=== PATIENT | male | born 1950 | race Caucasian/White ===

== ENCOUNTER 2020-06-20 18:08 | Inpatient (IN) ==
[2020-06-20] MEDS ORDERED: methylPREDNISolone SOD SUC 125 MG/2 ML VIAL IV STA (19:04)
[2020-06-20] MEDS ORDERED: ONDANSETRON 4 MG/2 ML VIAL IV STA (19:04)
[2020-06-20] MEDS ORDERED: SODIUM CHLORIDE 0.9% 500 ML IV STA (19:04)
[2020-06-20] MEDS ORDERED: AZITHROMYCIN INJ 500 MG in SODIUM CHLORIDE 0.9% 250 ML IV STA (19:04)
[2020-06-20 19:53] LABS: Basophils % 0.1 % (0.0-0.8); Hematocrit 41.1 VOL% (42.0-52.0); Hemoglobin 13.3 GM/DL (14.0-18.0); Immature Granulocytes % 1.3 %; Immature Granulocytes Absolute 0.13 #; Lymphocytes # 0.5 10*3/uL (1.4-4.0); Lymphocytes % 5.2 % (21.2-54.2); Mean Corpuscular HGB Conc 32.4 GM/DL (32-36); Mean Corpuscular Volume 90.5 FL (87-102); Mean Platelet Volume 12.2 FL (9.6-12.0); Monocytes % 3.6 % (1.7-12.7); Neutrophils % 89.8 % (38.7-73.9); Platelet Count 121 T/CUMM (130-400); Red Blood Count 4.54 MC/CUMM (3.8-5.5); Red Cell Distribution Width 14.8 % (9.3-17.3); White Blood Count 9.7 T/CUMM (4-12)
[2020-06-20 20:00] LABS: Albumin 2.7 G/DL (3.4-5.0); Bilirubin,Total 0.8 MG/DL (0.2-1.0); Calcium 6.7 MG/DL (8.5-10.1); Ferritin 400.5 ng/ml (26-388); Total Protein 6.5 G/DL (6.4-8.3)
[2020-06-20 20:01] LABS: INR 1.1; PT Patient Result 11.5 SECS (9.8-11.9)
[2020-06-20 20:27] LABS: Band Neutrophils 5 % (0-10); Lymphocytes 3 % (20-55); Platelet Estimate Adequate; Segmented Neutrophils 90 % (50-85); Total Cells Counted 100
[2020-06-20] MEDS ORDERED: ACETAMINOPHEN 325 MG TABLET PO PRN (23:15)
[2020-06-20] MEDS ORDERED: ONDANSETRON 4 MG/2 ML VIAL IV PRN (23:15)
[2020-06-20] MEDS ORDERED: DOCUSATE SODIUM 100 MG CAPSULE PO PRN (23:15)
[2020-06-20] MEDS: ENOXAPARIN 40 MG/0.4 ML SYRINGE SUBCUT SCH (23:59)
[2020-06-20] MEDS: cefTRIAXone 1,000 MG in SYRINGE 1 EACH IV SCH (23:59)
[2020-06-21] MEDS: ALBUTEROL INHALER 18 GM INH SCH ×4 (00:11→18:25)
[2020-06-21 05:57] LABS: Basophils % 0.1 % (0.0-0.8); Hematocrit 40.9 VOL% (42.0-52.0); Hemoglobin 13.1 GM/DL (14.0-18.0); Immature Granulocytes % 0.6 %; Immature Granulocytes Absolute 0.04 #; Lymphocytes # 0.4 10*3/uL (1.4-4.0); Lymphocytes % 5.1 % (21.2-54.2); Mean Corpuscular Volume 90.5 FL (87-102); Mean Platelet Volume 12.1 FL (9.6-12.0); Monocytes % 1.4 % (1.7-12.7); Neutrophils % 92.8 % (38.7-73.9); Platelet Count 124 T/CUMM (130-400); Red Blood Count 4.52 MC/CUMM (3.8-5.5); Red Cell Distribution Width 14.8 % (9.3-17.3); White Blood Count 7.2 T/CUMM (4-12)
[2020-06-21 06:30] LABS: Calcium 7.3 MG/DL (8.5-10.1)
[2020-06-21 06:41] LABS: Lymphocytes 5 % (20-55); Segmented Neutrophils 94 % (50-85); Total Cells Counted 100
[2020-06-21 06:42] LABS: Hypochromasia 1+; Microcytosis Slight; Platelet Estimate Adequate
[2020-06-21] MEDS: FAMOTIDINE 20 MG TABLET PO SCH ×2 (09:28→20:54)
[2020-06-21] MEDS: CETIRIZINE 10 MG TABLET PO SCH (09:28)
[2020-06-21] MEDS: AZITHROMYCIN 250 MG TABLET PO SCH (18:25)
[2020-06-21] MEDS ORDERED: AZITHROMYCIN INJ 500 MG in SODIUM CHLORIDE 0.9% 250 ML IV SCH (20:00)
[2020-06-21] MEDS: ENOXAPARIN 40 MG/0.4 ML SYRINGE SUBCUT SCH (23:17)
[2020-06-21] MEDS: cefTRIAXone 1,000 MG in SYRINGE 1 EACH IV SCH (23:18)
[2020-06-22] MEDS: ALBUTEROL INHALER 18 GM INH SCH ×4 (00:57→18:25)
[2020-06-22 05:18] LABS: Hematocrit 40.9 VOL% (42.0-52.0); Hemoglobin 13.4 GM/DL (14.0-18.0); Immature Granulocytes % 0.8 %; Immature Granulocytes Absolute 0.09 #; Lymphocytes # 0.5 10*3/uL (1.4-4.0); Lymphocytes % 3.8 % (21.2-54.2); Mean Corpuscular HGB Conc 32.8 GM/DL (32-36); Mean Corpuscular Volume 88.3 FL (87-102); Mean Platelet Volume 11.8 FL (9.6-12.0); Monocytes % 3.8 % (1.7-12.7); Neutrophils % 91.6 % (38.7-73.9); Platelet Count 147 T/CUMM (130-400); Red Blood Count 4.63 MC/CUMM (3.8-5.5); Red Cell Distribution Width 14.9 % (9.3-17.3)
[2020-06-22 05:31] LABS: Calcium 7.2 MG/DL (8.5-10.1); Osmolality,Calculated 278.8 MOS/KG (273-304)
[2020-06-22 06:30] LABS: Band Neutrophils 9 % (0-10); Lymphocytes 2 % (20-55); Platelet Estimate Adequate; Segmented Neutrophils 86 % (50-85); Total Cells Counted 100
[2020-06-22 06:31] LABS: Anisocytosis 2+; Giant Platelets Few
[2020-06-22] MEDS: CETIRIZINE 10 MG TABLET PO SCH (08:18)
[2020-06-22] MEDS: FAMOTIDINE 20 MG TABLET PO SCH ×2 (08:18→21:15)
[2020-06-22] MEDS: AZITHROMYCIN 250 MG TABLET PO SCH (18:25)
[2020-06-22] MEDS: carvediloL 25 MG TABLET PO SCH (21:15)
[2020-06-22] MEDS: ATORVASTATIN 20 MG TABLET PO SCH (21:15)
[2020-06-22] MEDS: ENOXAPARIN 40 MG/0.4 ML SYRINGE SUBCUT SCH (22:48)
[2020-06-22] MEDS: cefTRIAXone 1,000 MG in SYRINGE 1 EACH IV SCH (22:49)
[2020-06-23] MEDS: ALBUTEROL INHALER 18 GM INH SCH ×4 (00:49→18:16)
[2020-06-23 05:47] LABS: Basophils % 0.2 % (0.0-0.8); Eosinophils % 0.2 % (0.00-10.9); Immature Granulocytes % 0.6 %; Immature Granulocytes Absolute 0.04 #; Lymphocytes # 0.5 10*3/uL (1.4-4.0); Lymphocytes % 7.2 % (21.2-54.2); Mean Corpuscular HGB Conc 32.5 GM/DL (32-36); Mean Corpuscular Volume 89.9 FL (87-102); Mean Platelet Volume 12.2 FL (9.6-12.0); Monocytes % 7.8 % (1.7-12.7); Platelet Count 146 T/CUMM (130-400); Red Blood Count 4.45 MC/CUMM (3.8-5.5); Red Cell Distribution Width 15.2 % (9.3-17.3); White Blood Count 6.5 T/CUMM (4-12)
[2020-06-23 06:02] LABS: Calcium 7.5 MG/DL (8.5-10.1); Osmolality,Calculated 277.7 MOS/KG (273-304)
[2020-06-23] MEDS: LEVOTHYROXINE 125 MCG TABLET PO SCH (06:38)
[2020-06-23 08:29] LABS: Anisocytosis 1+; Platelet Estimate Adequate
[2020-06-23] MEDS: CHOLECALCIFEROL 1,000 UNIT TABLET PO SCH (08:36)
[2020-06-23] MEDS: carvediloL 25 MG TABLET PO SCH ×2 (08:36→16:38)
[2020-06-23] MEDS: FLUTICASONE 50 MCG NASAL SPRAY 16 GM BOTTLE BOTH NARES SCH (08:36)
[2020-06-23] MEDS: DEXAMETHASONE 4 MG TABLET PO SCH (08:37)
[2020-06-23] MEDS: ASPIRIN EC 81 MG TABLET PO SCH (08:37)
[2020-06-23] MEDS: FAMOTIDINE 20 MG TABLET PO SCH ×2 (08:37→21:29)
[2020-06-23] MEDS: ZINC SULFATE 220 MG CAPSULE PO SCH (08:37)
[2020-06-23] MEDS: allopurinoL 100 MG TABLET PO SCH (08:37)
[2020-06-23] MEDS: ASCORBIC ACID 500 MG TABLET PO SCH (08:37)
[2020-06-23] MEDS: CETIRIZINE 10 MG TABLET PO SCH (08:37)
[2020-06-23] MEDS: AZITHROMYCIN 250 MG TABLET PO SCH (18:16)
[2020-06-23] MEDS: ATORVASTATIN 20 MG TABLET PO SCH (21:29)
[2020-06-23] MEDS: ENOXAPARIN 40 MG/0.4 ML SYRINGE SUBCUT SCH (23:15)
[2020-06-23] MEDS: cefTRIAXone 1,000 MG in SYRINGE 1 EACH IV SCH (23:16)
[2020-06-24] MEDS: ALBUTEROL INHALER 18 GM INH SCH ×3 (01:09→14:20)
[2020-06-24] MEDS: LEVOTHYROXINE 125 MCG TABLET PO SCH (06:23)
[2020-06-24] MEDS: FLUTICASONE 50 MCG NASAL SPRAY 16 GM BOTTLE BOTH NARES SCH (09:20)
[2020-06-24] MEDS: ASPIRIN EC 81 MG TABLET PO SCH (09:21)
[2020-06-24] MEDS: FAMOTIDINE 20 MG TABLET PO SCH (09:21)
[2020-06-24] MEDS: DEXAMETHASONE 4 MG TABLET PO SCH (09:21)
[2020-06-24] MEDS: ASCORBIC ACID 500 MG TABLET PO SCH (09:21)
[2020-06-24] MEDS: CHOLECALCIFEROL 1,000 UNIT TABLET PO SCH (09:21)
[2020-06-24] MEDS: allopurinoL 100 MG TABLET PO SCH (09:22)
[2020-06-24] MEDS: ZINC SULFATE 220 MG CAPSULE PO SCH (09:22)
[2020-06-24] MEDS: carvediloL 25 MG TABLET PO SCH ×2 (09:22→18:24)
[2020-06-24] MEDS: CETIRIZINE 10 MG TABLET PO SCH (09:22)
[2020-06-24 16:37] VITALS: BP 119/69
[2020-06-24] MEDS ORDERED: CALCIUM GLUCONATE 1,000 MG in SODIUM CHLORIDE 0.9% 100 ML IV ONE (18:00)
[2020-06-24] MEDS: AZITHROMYCIN 250 MG TABLET PO SCH (18:24)
[2020-06-24] MEDS ORDERED: ASCORBIC ACID 500 MG TABLET PO SCH (21:00)
== END 2020-06-24 18:30 | disposition home or self-care (01) | DRG 177 ==
LOC: EDUNIT# → EDBD → N.ED 18:08 → SUATTDRO 22:14 → N.EDINP 22:14 → N.2E 22:33
PROVIDERS: ADMIT Internal Medicine; ATTEND Internal Medicine